=== PATIENT | male | born 1955 | race Caucasian/White ===

== ENCOUNTER → 2019-02-08 | Outpatient (REF) | payer MEDICARE, MEDICAID | LOC: M LAB REF 12:07 | PROVIDERS: ATTEND Surgery | DX: M86.60 Other chronic osteomyelitis, unspecified site (principal); L89.893 Pressure ulcer of other site, stage 3 ==

== ENCOUNTER → 2019-08-16 | Outpatient (REF) | payer MEDICARE, MEDICAID | LOC: M LAB REF 12:09 | PROVIDERS: ATTEND Surgery | DX: L89.514 Pressure ulcer of right ankle, stage 4 (principal) ==